=== PATIENT | female | born 1980 | race Caucasian/White ===

== ENCOUNTER 2017-09-13 22:19 | Emergency (ER) | payer OTHER ==
[~2017-09-13] VITALS: Ht 152.4 cm; Wt 75.1 kg
[~2017-09-13 22:19] MED LIST: BREX1TAB4 PO; DESV25TA PO; LISD60 PO; SUVO1TAB4 PO; TRAZ100 PO
[2017-09-13 22:24] VITALS: BP 122/75; PULSE 94; RESP 26; TEMP 101.2; O2SAT 99
[2017-09-13] MEDS ORDERED: DESV100T PO (22:31)
[2017-09-13] MEDS ORDERED: IBUP1TAB7 PO (22:31)
[2017-09-13] MEDS ORDERED: TRAZ1TAB14 PO (22:31)
[2017-09-13] MEDS ORDERED: BREX1TAB5 PO (22:31)
[2017-09-13] MEDS ORDERED: LISD70 PO (22:31)
[2017-09-13 23:30] VITALS: BP 101/59; PULSE 84; RESP 22; O2SAT 99
[2017-09-13] MEDS ORDERED: SODIUM CHLOR 0.9% 1000 ML INJ 1,000 ML IV ONE (23:33)
--- NOTE | 2017-09-13 23:39 | PD ---
HPI Chief Complaint: GI Complaint Time Seen by Provider: 23:21 Travel History International Travel<30 days: No Contact w/Intl Traveler<30days: No Traveled to known affect area: No History of Present Illness HPI 36-year-old female with a past medical history of PCO S, depression, ADD presents to the emergency room complaining of fever, chills, body aches, sore throat, nausea, vomiting, diarrhea, muscle cramps in the arms or legs and headache. Symptoms have been there for 3 days. Patient vomited today 5 times. Pain is mild to moderate. Symptoms relieved with NSAIDs such as ibuprofen at home. Patient denies any shortness of breath, cough, rash, vaginal bleeding or discharge,OR hematemesis PFSH Past Medical History Anxiety: Yes Depression: Yes Cancer: No Cardiovascular Problems: No Diabetes: No Diminished Hearing: No Endocrine: No Genitourinary: No Hepatitis: No Hiatal Hernia: No Immune Disorder: No Medical other: Yes (PCOS) Musculoskeletal: No Neurologic: No Psychiatric: Yes Reproductive: No Respiratory: Yes (SLEEP APNEA) Immunizations Current: Yes Thyroid Disease: No Influenza Vaccination: No ?: Not LMP: 07/09/17 Menopausal: No Past Surgical History Abdominal Surgery: Yes (Gastric sleeve) AICD: No Oral Surgery: Yes (TONSILS, DENTAL GUM SX) Pacemaker: No Tonsillectomy: Yes Other Surgery: Yes Social History Alcohol Use: Yes (OCCASS) Tobacco Use: No (Occassional Vape) Substance Use: No Allergies-Medications (Allergen,Severity, Reaction): Coded Allergies: No Known Allergies (Unverified Adverse Reaction, Unknown, 09/13/17) Reported Meds & Prescriptions Reported Meds & Active Scripts Active Tylenol-Codeine #3 (Acetaminophen-Codeine) 300-30 mg Tab 1-2 Tab PO Q6H PRN Augmentin (Amoxicillin-Clavulanate) 875-125 Mg Tab 1 Tab PO BID 10 Days Reported Ibuprofen 800 Mg Tab 800 Mg PO Q6HR PRN Rexulti (Brexpiprazole) 3 Mg Tab 3 Mg PO DAILY Desvenlafaxine ER (Desvenlafaxine) 100 Mg Tab.er.24h 100 Mg PO DAILY Trazodone (Trazodone HCl) 150 Mg Tablet 150 Mg PO HS Vyvanse (Lisdexamfetamine Dimesylate) 70 Mg Cap 70 Mg PO DAILY Review of Systems Except as stated in HPI: all other systems reviewed are Neg General / Constitutional: Positive: Fever, Chills Eyes: No: Blurred Vision, Redness, Pain HENT: Positive: Sore Throat, Earache, No: Rhinorrhea, Congestion, Neck Stiffness, Neck Pain Cardiovascular: No: Chest Pain or Discomfort, Palpitations, Dyspnea on exertion Respiratory: No: Cough, Shortness of Breath, Wheezing Gastrointestinal: Positive: Nausea, Vomiting, No: Diarrhea, Abdominal Pain, Hematochezia, Constipation Genitourinary: No: Dysuria Musculoskeletal: Positive: Myalgias Skin: No Rash, No Hives Neurologic: No: Weakness, Dizziness, Syncope, Headache, Slurred Speech, Seizures Psychiatric: No: Suicidal Ideations Physical Exam Narrative Vital Signs Date Time Temp Pulse Resp B/P (MAP) Pulse Ox O2 Delivery O2 Flow Rate FiO2 09/14/17 01:30 74 20 105/64 (78) 99 09/14/17 01:21 18 09/14/17 00:32 78 22 104/63 (77) 99 Room Air 09/13/17 23:30 84 22 101/59 (73) 99 Room Air 09/13/17 22:56 22 09/13/17 22:24 101.2 94 26 122/75 (91) 99 GENERAL: Patient is alert and oriented -3 SKIN: Focused skin assessment warm/dry. HEAD: Atraumatic. Normocephalic. EYES: Pupils equal and round. No scleral icterus. No injection or drainage. ENT: No nasal bleeding or discharge. Mucous membranes pink and moist erythematous pharynx w purulent discharge NECK: Trachea midline. No JVD. CARDIOVASCULAR: Tachycardic , No murmur appreciated. RESPIRATORY: No accessory muscle use. Clear to auscultation. Breath sounds equal bilaterally. GASTROINTESTINAL: Abdomen soft, non-tender, nondistended. Hepatic and splenic margins not palpable. MUSCULOSKELETAL: No obvious deformities. No clubbing. No cyanosis. No edema. NEUROLOGICAL: Awake and alert. No obvious cranial nerve deficits. Motor grossly within normal limits. Normal speech. PSYCHIATRIC: Appropriate mood and affect; insight and judgment normal. Data Data Last Documented VS Vital Signs Date Time Temp Pulse Resp B/P (MAP) Pulse Ox O2 Delivery O2 Flow Rate FiO2 09/14/17 01:30 74 20 105/64 (78) 99 09/14/17 00:32 Room Air 09/13/17 22:24 101.2 Vital Signs Date Time Temp Pulse Resp B/P (MAP) Pulse Ox O2 Delivery O2 Flow Rate FiO2 09/14/17 01:30 74 20 105/64 (78) 99 09/14/17 01:21 18 09/14/17 00:32 78 22 104/63 (77) 99 Room Air 09/13/17 23:30 84 22 101/59 (73) 99 Room Air 09/13/17 22:56 22 09/13/17 22:24 101.2 94 26 122/75 (91) 99 Orders Orders Complete Blood Count With Diff (09/13/17 23:33) Comprehensive Metabolic Panel (09/13/17 23:33) Urinalysis - C+S If Indicated (09/13/17 23:33) Beta Hcg (Quant/Titer) (09/13/17 23:33) Lipase (09/13/17 23:33) Iv Access Insert/Monitor (09/13/17 23:33) Ecg Monitoring (09/13/17 23:33) Oximetry (09/13/17 23:33) Ondansetron Inj (Zofran Inj) (09/13/17 23:45) Pantoprazole Inj (Protonix Inj) (09/13/17 23:45) Sodium Chlor 0.9% 1000 Ml Inj (Ns 1000 M (09/13/17 23:33) Sodium Chloride 0.9% Flush (Ns Flush) (09/13/17 23:45) Group A Rapid Strep Screen (09/13/17 23:33) Monoscreen (09/13/17 23:33) Ketorolac Inj (Toradol Inj) (09/13/17 23:45) Acetaminophen (Tylenol) (09/13/17 23:45) Strep Culture (Group A) (09/14/17 00:07) Ed Discharge Order (09/14/17 01:15) Labs Laboratory Tests Test 09/14/17 00:07 White Blood Count 5.3 TH/MM3 Red Blood Count 4.24 MIL/MM3 Hemoglobin 11.4 GM/DL Hematocrit 33.5 % Mean Corpuscular Volume 79.0 FL Mean Corpuscular Hemoglobin 27.0 PG Mean Corpuscular Hemoglobin Concent 34.2 % Red Cell Distribution Width 14.1 % Platelet Count 175 TH/MM3 Mean Platelet Volume 8.0 FL Neutrophils (%) (Auto) 74.3 % Lymphocytes (%) (Auto) 19.5 % Monocytes (%) (Auto) 5.4 % Eosinophils (%) (Auto) 0.6 % Basophils (%) (Auto) 0.2 % Neutrophils # (Auto) 4.0 TH/MM3 Lymphocytes # (Auto) 1.0 TH/MM3 Monocytes # (Auto) 0.3 TH/MM3 Eosinophils # (Auto) 0.0 TH/MM3 Basophils # (Auto) 0.0 TH/MM3 CBC Comment DIFF FINAL Differential Comment Urine Color YELLOW Urine Turbidity CLEAR Urine pH 6.5 Urine Specific [place] 1.020 Urine Protein NEG mg/dL Urine Glucose (UA) NEG mg/dL Urine Ketones NEG mg/dL Urine Occult Blood NEG Urine Nitrite NEG Urine Bilirubin NEG Urine Urobilinogen 1.0 MG/DL Urine Leukocyte Esterase NEG Urine RBC 0-2 /hpf Urine WBC 0-2 /hpf Urine Squamous Epithelial Cells 0-5 /hpf Urine Bacteria NONE /hpf Microscopic Urinalysis Comment CULT NOT INDICATED Blood Urea Nitrogen 8 MG/DL Creatinine 0.95 MG/DL Random Glucose 201 MG/DL Total Protein 6.7 GM/DL Albumin 3.1 GM/DL Calcium Level 7.9 MG/DL Alkaline Phosphatase 101 U/L Aspartate Amino Transf (AST/SGOT) 21 U/L Alanine Aminotransferase (ALT/SGPT) 22 U/L Total Bilirubin 0.2 MG/DL Sodium Level 139 MEQ/L Potassium Level 3.2 MEQ/L Chloride Level 106 MEQ/L Carbon Dioxide Level 22.3 MEQ/L Anion Gap 11 MEQ/L Estimat Glomerular Filtration Rate 67 ML/MIN Lipase 110 U/L Human Chorionic Gonadotropin, Quant LESS THAN 1 MIU/ML Monoscreen NEG MDM Medical Decision Making Medical Screen Exam Complete: Yes Emergency Medical Condition: Yes Medical Record Reviewed: Yes Differential Diagnosis Pharyngitis, pneumonia, Narrative Course Patient improved after IV fluids and medications. Results were discussed with the patient. Patient is stable to discharge home on antibiotics. Diagnosis Primary Impression: Pharyngitis Additional Impression: Nausea & vomiting Referrals: Primary Care Physician 1 day Patient Instructions: Acute Nausea and Vomiting (DC), General Instructions, Pharyngitis (ED) Scripts Acetaminophen-Codeine (Tylenol-Codeine #3) 300-30 mg Tab 1-2 TAB PO Q6H Y for PAIN, #12 TAB 0 Refills Prov: Marvin Conroy MD 09/14/17 Amoxicillin-Clavulanate (Augmentin) 875-125 Mg Tab 1 TAB PO BID for Infection for 10 Days, #20 TAB 0 Refills Prov: Marvin Conroy MD 09/14/17 Disposition: 01 DISCHARGE HOME Condition: Stable Marvin Conroy MD Sep 13, 2017 23:39
[2017-09-13] MEDS ORDERED: SODIUM CHLORIDE 0.9% FLUSH 10 ML FLUSH IVF PRN (23:45)
[2017-09-13] MEDS ORDERED: PANTOPRAZOLE SODIUM 40 MG VIAL IV PUSH ONE (23:45)
[2017-09-13] MEDS ORDERED: KETOROLAC TROMETHAMINE 30 MG/ML (IVP) VIAL IV PUSH ONE (23:45)
[2017-09-13] MEDS ORDERED: ONDANSETRON HCL 4 MG/2 ML VIAL IV PUSH ONE (23:45)
[2017-09-13] MEDS ORDERED: ACETAMINOPHEN 500 MG CPLT PO ONE (23:45)
[2017-09-14 00:22] LABS: BILIRUBIN, URINE NEG (NEG); BLOOD, URINE NEG (NEG); GLUCOSE,URINE NEG (NEG); KETONE, URINE NEG (NEG); NITRITE,URINE NEG (NEG); PH, URINE 6.5 (5.0-8.5); URINE COLOR YELLOW (YELLW/STRAW); URINE LEUKOCYTE ESTERASE NEG (NEG)
[2017-09-14 00:24] LABS: BASOPHIL % 0.2 % (0.0-2.0); EOSINOPHIL % 0.6 % (0.0-4.0); HEMATOCRIT 33.5 % (35.0-46.0); HEMOGLOBIN 11.4 GM/DL (11.6-15.3); LYMPH % 19.5 % (9.0-44.0); MEAN CORPUSCULAR HGB CONC 34.2 % (32.0-36.0); MONO % 5.4 % (0.0-8.0); MONOCYTE # 0.3 TH/MM3 (0-0.9); NEUT % 74.3 % (16.0-70.0); PLATELET COUNT 175 TH/MM3 (150-450); RED BLOOD COUNT 4.24 MIL/MM3 (4.00-5.30); RED CELL DISTRIBUTION WIDTH 14.1 % (11.6-17.2); WHITE BLOOD COUNT 5.3 TH/MM3 (4.0-11.0)
[2017-09-14 00:32] VITALS: BP 104/63; PULSE 78; RESP 22; O2SAT 99
[2017-09-14 00:34] LABS: CHLORIDE 106 MEQ/L (98-107); SODIUM (NA) 139 MEQ/L (136-145)
[2017-09-14 00:38] LABS: ALBUMIN 3.1 GM/DL (3.4-5.0); BICARBONATE 22.3 MEQ/L (21.0-32.0); BLOOD UREA NITROGEN 8 MG/DL (7-18); CALCIUM 7.9 MG/DL (8.5-10.1); GLUCOSE,RANDOM 201 MG/DL (74-106)
[2017-09-14 00:41] LABS: ALT (GPT) 22 U/L (10-53); AST (GOT) 21 U/L (15-37); CREATININE 0.95 MG/DL (0.50-1.00); GLOMERULAR FILTRATION RATE 67 ML/MIN (>89)
[2017-09-14 00:43] LABS: TOTAL BILIRUBIN ADULT 0.2 MG/DL (0.2-1.0); TOTAL PROTEIN 6.7 GM/DL (6.4-8.2)
[2017-09-14 00:44] LABS: ALKALINE PHOSPHATASE 101 U/L (45-117)
[2017-09-14 00:47] LABS: RBC, URINE 0-2 /hpf (0-3); SQUAMOUS EPITHELIAL CELL URINE 0-5 /hpf (0-5); WBC, URINE 0-2 /hpf (0-5)
[2017-09-14] MEDS ORDERED: TYLETAB34 PO (01:12)
[2017-09-14] MEDS ORDERED: AUGM875T3 PO (01:12)
[2017-09-14 01:21] VITALS: RESP 18
[2017-09-14 01:30] VITALS: BP 105/64
[2017-09-14 01:59] LABS: MONOSCREEN NEG (NEG)
== END 2017-09-14 02:05 | disposition home or self-care (01) ==
LOC: PHED 22:19
DX: J02.9 Acute pharyngitis, unspecified (principal); R11.2 Nausea with vomiting, unspecified; R19.7 Diarrhea, unspecified; R51 Headache; R25.2 Cramp and spasm; E28.2 Polycystic ovarian syndrome; F32.9 Major depressive disorder, single episode, unspecified; F41.9 Anxiety disorder, unspecified; G47.30 Sleep apnea, unspecified
CPT/HCPCS: 80053; 81001; 83690; 84702; 85025; 86308; 87081; 87880; 96361; 96374; 96375; 99284; C9113; J1885; J2405; J7030